=== PATIENT | male | born 1970 | race Caucasian/White ===

== ENCOUNTER 2020-06-03 07:43 | Inpatient (IN) | payer SELFPAY ==
[2020-06-03 08:32] LABS: Absolute Lymphocytes (CBC) 1.2 K/uL (0.7-4.9); Basophils % 0.2 % (0-1.3); Hematocrit 41.4 % (39.6-49.0); Lymphocytes % 14.7 % (15.3-44.8); MPV 7.3 fL (7.6-11.3); RBC Red Blood Cell Count 4.86 M/uL (4.33-5.43)
[2020-06-03 08:38] LABS: Protime INR 1.13
[2020-06-03 08:50] LABS: ALT/SGPT 67 U/L (12-78); AST/SGOT 79 U/L (15-37); Alkaline Phosphatase 92 U/L (45-117); BUN Blood Urea Nitrogen 19 mg/dL (7-18); Bicarbonate 26 mmol/L (21-32); Bilirubin Direct 0.1 mg/dL (0-0.2); Bilirubin Total 0.5 mg/dL (0.2-1.0); Ferritin 1270.3 ng/mL (26-388); Glucose Level 114 mg/dL (74-106); Lipase 140 U/L (73-393); Potassium 3.8 mmol/L (3.5-5.1); Protein, Total 7.4 g/dL (6.4-8.2); Sodium Level 144 mmol/L (136-145); Troponin (Emerg Dept Use Only) < 0.02 ng/mL (0.0-0.045)
[2020-06-03] MEDS ORDERED: METHYLPREDNISOLONE 40 MG INJ ONE (09:02)
--- NOTE | 2020-06-03 09:20 | RAD REPORT ---
EXAM DESCRIPTION: CT - Chest For Pe Angio - 06/03/2020 9:07 am CLINICAL HISTORY: Cough COMPARISON: None. TECHNIQUE: Dynamically enhanced axial 3 mm thick images of the chest were obtained during administra tion of <100> mL Isovue 370 IV contrast. Coronal and oblique reconstruction images were generated and reviewed. Exam utilizes a protocol for optimal evaluation of pulmonary arterial tree. Maximum intensity projections 3D imaging was utilized All CT scans are performed using dose optimization technique as appropriate and may include automated exposure control or mA/KV adjustment according to patient size. FINDINGS: A pulmonary embolus is not seen. A thoracic aortic aneurysm is not noted. A pleural effusion is not seen. A pericardial effusion is not seen. Moderate to marked bilateral ground-glass and alveolar opacities are present within the lungs. Fatty liver IMPRESSION: Negative for a pulmonary embolism. [id number] bilateral ground-glass and alveolar opacities are present within the lungs. This c an be seen with viral pneumonia, pneumonitis and other pneumonias
--- NOTE | 2020-06-03 09:20 | RAD REPORT ---
EXAM DESCRIPTION: Penny Single View06/03/2020 9:02 am CLINICAL HISTORY: Cough COMPARISON: none FINDINGS: Moderate to marked bilateral pulmonary opacities. The heart is normal size IMPRESSION: Moderate to marked bilateral patchy lung opacities represent pneumonia
--- NOTE | 2020-06-03 09:27 | EDPHYS ---
Physician Documentation [facility] Name: Rigoberto Herrera Age: 50 yrs Sex: Male : 1970 Arrival Date: 06/03/2020 Time: 07:46 Bed 2 Private MD: ED Physician Tirso Gunn HPI: 06/03 08:31 This 50 yrs old Male presents to ER via EMS with complaints of Cough, kdr Shortness Of Breath. 08:31 The patient or guardian reports cough, that is intermittent, described as moderate, kdr with productive sputum, that is white, difficulty breathing, flu symptoms, arthralgias, myalgias, no appetite. Onset: The symptoms/episode began/occurred gradually, 5 day(s) ago. Severity of symptoms: At their worst the symptoms were mild, moderate, just prior to arrival, in the emergency department the symptoms are unchanged. Modifying factors: The symptoms are alleviated by nothing, the symptoms are aggravated by talking. Associated signs and symptoms: Pertinent positives: earache, nausea, . The patient has not experienced similar symptoms in the past. The patient has not recently seen a physician. The patient was working in [employer] last week and so when he first became ill, he thought his cough, congestion and generalized aches an pains were just a result of his work but when he lost his sense of taste/smell, he became more concerned. The sensory loss though only lasted a few days but his SOB has worsened since onset. EMS noted room air sat of 75% at home. Here he is noted to desaturate to 87% with talking. Historical: - Allergies: 07:48 Codeine; bp 07:48 Relafen; bp - Home Meds: 07:48 None [Active]; bp - PMHx: 07:48 None; bp - Immunization history:: Adult Immunizations unknown. - Social history:: Smoking status: Patient denies any tobacco usage or history of. ROS: 08:31 Constitutional: Negative for fever, chills, and weight loss, Eyes: Negative for injury, kdr pain, redness, and discharge, Neck: Negative for injury, pain, and swelling, Cardiovascular: Negative for chest pain, palpitations, and edema, Respiratory: Negative for shortness of breath, cough, wheezing, and pleuritic chest pain, Abdomen/GI: Negative for abdominal pain, nausea, vomiting, diarrhea, and constipation, Back: Negative for injury and pain, : Negative for injury, bleeding, discharge, and swelling, MS/Extremity: Negative for injury and deformity, Skin: Negative for injury, rash, and discoloration, Neuro: Negative for headache, weakness, numbness, tingling, and seizure activity. Psych: Negative for depression, anxiety, suicide ideation, homicidal ideation, and hallucinations, Allergy/Immunology: Negative for hives, rash, and allergies, Endocrine: Negative for neck swelling, polydipsia, polyuria, polyphagia, and marked weight changes, Hematologic/Lymphatic: Negative for swollen nodes, abnormal bleeding, and unusual bruising. Exam: 08:31 Constitutional: This is a well developed, well nourished patient who is awake, alert, kdr and in very mild distress. Head/Face: Normocephalic, atraumatic. Eyes: Pupils equal round and reactive to light, extra-ocular motions intact. Lids and lashes normal. Conjunctiva and sclera are non-icteric and not injected. Cornea within normal limits. Periorbital areas with no swelling, redness, or edema. Neck: Trachea midline, no thyromegaly or masses palpated, and no cervical lymphadenopathy. Supple, full range of motion without nuchal rigidity, or vertebral point tenderness. No Meningismus. Chest/axilla: Normal chest wall appearance and motion. Nontender with no deformity. No lesions are appreciated. Back: No spinal tenderness. No costovertebral tenderness. Full range of motion. MS/ Extremity: Pulses equal, no cyanosis. Neurovascular intact. Full, normal range of motion. Psych: Awake, alert, with orientation to person, place and time. Behavior, mood, and affect are within normal limits. 08:31 Cardiovascular: Rate: normal, Rhythm: regular. 08:31 Respiratory: the patient does not display signs of respiratory distress, Respirations: normal. 08:31 Neuro: Orientation: is normal, Mentation: is normal, Memory: appropriate for stated age, Cranial nerves: no acute changes. 08:55 ECG was reviewed by the Attending Physician. kdr Vital Signs: 07:46 Pulse Ox 75% on R/A; bp 07:48 BP 133 / 90; Pulse 94; Resp 33; Temp 97.2; Pulse Ox 93% on 15% Non-rebreather mask; bp Weight 111.13 kg; Height 6 ft. (182.88 cm); 08:56 BP 130 / 85; Pulse 92; Resp 30; Pulse Ox 92% on 15% Non-rebreather mask; bp 09:15 Pulse Ox 87% on Non-rebreather mask; jl7 10:00 Pulse Ox 85% on Non-rebreather mask; jl7 10:09 BP 138 / 88; Pulse 88; Resp 26; Pulse Ox 93% ; jl7 11:00 BP 128 / 82; Pulse 87; Resp 32; Pulse Ox 93% 100% ; bp 11:37 BP 127 / 66; Pulse 86; Resp 31; Pulse Ox 93% 20 lpm ; bp 12:30 BP 118 / 70; Pulse 87; Resp 32; Pulse Ox 92% ; bp 07:48 Body Mass Index 33.23 (111.13 kg, 182.88 cm) bp 10:09 40 lpm, 100%, high flow NC jl7 MDM: 09:27 Patient medically screened. kdr 09:28 Data reviewed: vital signs, nurses notes, lab test result(s), EKG, radiologic studies. kdr Counseling: I had a detailed discussion with the patient and/or guardian regarding: the historical points, exam findings, and any diagnostic results supporting the discharge/admit diagnosis, lab results, radiology results, the need for further work-up and treatment in the hospital. 06/03 07:47 Order name: Blood Culture Adult (2) kdr 06/03 07:47 Order name: BMP; Complete Time: 08:54 kdr 06/03 07:47 Order name: C-Reactive Protein; Complete Time: 08:54 kdr 06/03 07:47 Order name: CBC with Diff; Complete Time: 08:54 kdr 06/03 07:47 Order name: D-Dimer kdr 06/03 07:47 Order name: Ferritin; Complete Time: 08:54 kdr 06/03 07:47 Order name: Flu; Complete Time: 09:24 kdr 06/03 07:47 Order name: Lactate; Complete Time: 08:54 kdr 06/03 07:47 Order name: LFT's; Complete Time: 08:54 kdr 06/03 07:47 Order name: Lipase; Complete Time: 08:54 kdr 06/03 07:47 Order name: Procalcitonin; Complete Time: 09:24 kdr 06/03 07:47 Order name: PT-INR; Complete Time: 08:54 kdr 06/03 07:47 Order name: Ptt, Activated; Complete Time: 08:54 kdr 06/03 07:47 Order name: Strep; Complete Time: 09:24 kdr 06/03 07:47 Order name: Troponin (emerg Dept Use Only); Complete Time: 08:54 kdr 06/03 07:47 Order name: Urine Microscopic Only kdr 06/03 07:47 Order name: CXR XRAY; Complete Time: 09:24 kdr 06/03 07:47 Order name: EKG; Complete Time: 07:48 kdr 06/03 07:47 Order name: Cardiac monitoring; Complete Time: 07:48 kdr 06/03 07:47 Order name: Document PUI#; Complete Time: 07:48 kdr 06/03 07:47 Order name: Droplet/Contact Precautions; Complete Time: 07:48 kdr 06/03 07:48 Order name: Blood Culture EDMS 06/03 07:49 Order name: D-Dimer; Complete Time: 08:54 EDMS 06/03 08:53 Order name: CT Chest For PE Angio; Complete Time: 09:24 kdr 06/03 09:09 Order name: Throat Culture EDMS 06/03 09:45 Order name: SARS-COV-2 RT PCR EDMS 06/03 07:47 Order name: EKG - Nurse/Tech; Complete Time: 08:18 kdr 06/03 07:47 Order name: IV Start; Complete Time: 08:18 kdr 06/03 07:47 Order name: Labs collected and sent; Complete Time: 08:18 kdr 06/03 07:47 Order name: O2 Per Protocol; Complete Time: 08:18 kdr 06/03 07:47 Order name: O2 Sat Monitoring; Complete Time: 07:49 kdr 06/03 07:47 Order name: Urine Dipstick-Ancillary (obtain specimen); Complete Time: 07:48 kdr EC:55 Rate is 93 beats/min. Rhythm is regular, Normal Sinus Rhythm with No ectopy. QRS Ben Bolt kdr is Normal. CA interval is normal. QRS interval is normal. QT interval is normal. Clinical impression: Normal ECG. Administered Medications: 08:40 Drug: SOLU-Medrol 80 mg Route: IVP; Site: right antecubital; bp 09:18 Follow up: Response: No adverse reaction bp 09:59 Drug: Rocephin - (cefTRIAXone) 2 grams Route: IVPB; Infused Over: 30 mins; Site: right bp antecubital; 11:38 Follow up: IV Status: Completed infusion; IV Intake: 50ml bp Disposition: 06/03/20 09:27 Hospitalization ordered by Kervin Larose for Inpatient Admission. Preliminary diagnosis is Pneumonia, unspecified organism. - Bed requested for Intensive Care Unit. - Status is Inpatient Admission. bp - Condition is Fair. - Problem is new. - Symptoms have improved. Signatures: Dispatcher [employer] EDMS Yuliet De Leon, RN RN dw Tirso Gunn MD MD kdr Gilson Boo RN RN bp Corrections: (The following items were deleted from the chart) 07:49 07:47 Notify Health Dept [phone]/ ordered. kdr sv 08:18 07:47 Clark ordered. kdr bp 08:36 08:10 CORONAVIRUS+MR.LAB.DAKOTAZ ordered. [facility] EDDC 12:49 09:27 Hospitalization Ordered by Kervin Larose DO for Inpatient Admission. Preliminary dw diagnosis is Pneumonia, unspecified organism. Bed requested for Telemetry/MedSurg (Inpatient). Status is Inpatient Admission. Condition is Fair. Problem is new. Symptoms have improved. kdr 14:11 12:49 06/03/2020 09:27 Hospitalization Ordered by Kervin Larose DO for Inpatient bp Admission. Preliminary diagnosis is Pneumonia, unspecified organism. Bed requested for Intensive Care Unit. Status is Inpatient Admission. Condition is Fair. Problem is new. Symptoms have improved. dw
--- NOTE | 2020-06-03 09:27 | ER ---
Nurse's Notes [facility] Name: Rigoberto Herrera Age: 50 yrs Sex: Male : 1970 Arrival Date: 06/03/2020 Time: 07:46 Bed 2 Private MD: Diagnosis: Pneumonia, unspecified organism Presentation: 06/03 07:46 Chief complaint: EMS states: COUGH, SHORTNESS OF BREATH, MALAISE x5 DAYS. Coronavirus bp screen: cough unrelated to allergies, difficulty breathing, fatigue, muscle pain, shortness of breath, Client presents with at least one sign or symptom that may indicate coronavirus-19. Standard/surgical mask placed on the client. Provider contacted for isolation considerations. Ebola Screen: No symptoms or risks identified at this time. Initial Sepsis Screen: Does the patient meet any 2 criteria? RR > 20 per min. No. Patient's initial sepsis screen is negative. Does the patient have a suspected source of infection? No. Patient's initial sepsis screen is negative. Risk Assessment: Do you want to hurt yourself or someone else? Patient reports no desire to harm self or others. Onset of symptoms is unknown. 07:46 Method Of Arrival: EMS: [facility] bp 07:46 Acuity: SUAL 2 bp Triage Assessment: 07:48 General: Appears distressed, ill, obese, Behavior is cooperative, appropriate for age, bp anxious. Pain: Denies pain. EENT: Reports nasal congestion. Neuro: Level of Consciousness is awake, alert, obeys commands, Oriented to person, place, time, situation, Appropriate for age. Cardiovascular: Rhythm is sinus rhythm. Respiratory: Breath sounds are coarse bilaterally. Breath sounds are diminished bilaterally. GI: No signs and/or symptoms were reported involving the gastrointestinal system. : No signs and/or symptoms were reported regarding the genitourinary system. Derm: No deficits noted. Musculoskeletal: No deficits noted. Historical: - Allergies: 07:48 Codeine; bp 07:48 Relafen; bp - Home Meds: 07:48 None [Active]; bp - PMHx: 07:48 None; bp - Immunization history:: Adult Immunizations unknown. - Social history:: Smoking status: Patient denies any tobacco usage or history of. Screenin:50 Abuse screen: Denies threats or abuse. Denies injuries from another. Nutritional bp screening: No deficits noted. Tuberculosis screening: No symptoms or risk factors identified. Fall Risk None identified. Assessment: 07:50 General: SEE TRIAGE NOTE. bp 09:20 Reassessment: Patient appears in no apparent distress at this time. No changes from jl7 previously documented assessment. Patient and/or family updated on plan of care and expected duration. Pain level reassessed. pt A\T\0 x 4. respirations unchanged from previous assessment. 10:09 Reassessment: pt placed on high-flow O2, 40L at 100%. jl7 10:40 Reassessment: Dr. Larose at bedside. jl7 11:37 Reassessment: No changes from previously documented assessment. Patient and/or family bp updated on plan of care and expected duration. Pain level reassessed. Patient is alert, oriented x 3, equal unlabored respirations, skin warm/dry/pink. ADMIT IN PROCESS. PT REMAINS ON HIFLOW NC 40L AT 100%. 12:30 Reassessment: Patient appears in no apparent distress at this time. No changes from bp previously documented assessment. Patient and/or family updated on plan of care and expected duration. Pain level reassessed. Patient is alert, oriented x 3, equal unlabored respirations, skin warm/dry/pink. ADMIT IN PROCESS. 12:57 Reassessment: Attempted to call report, nurse unavailable. sv 13:44 Reassessment: ADMIT COMPLETE, REPORT TO FLAKO RN FOR ICU 3. bp Vital Signs: 07:46 Pulse Ox 75% on R/A; bp 07:48 BP 133 / 90; Pulse 94; Resp 33; Temp 97.2; Pulse Ox 93% on 15% Non-rebreather mask; bp Weight 111.13 kg; Height 6 ft. (182.88 cm); 08:56 BP 130 / 85; Pulse 92; Resp 30; Pulse Ox 92% on 15% Non-rebreather mask; bp 09:15 Pulse Ox 87% on Non-rebreather mask; jl7 10:00 Pulse Ox 85% on Non-rebreather mask; jl7 10:09 BP 138 / 88; Pulse 88; Resp 26; Pulse Ox 93% ; jl7 11:00 BP 128 / 82; Pulse 87; Resp 32; Pulse Ox 93% 100% ; bp 11:37 BP 127 / 66; Pulse 86; Resp 31; Pulse Ox 93% 20 lpm ; bp 12:30 BP 118 / 70; Pulse 87; Resp 32; Pulse Ox 92% ; bp 07:48 Body Mass Index 33.23 (111.13 kg, 182.88 cm) bp 10:09 40 lpm, 100%, high flow NC jl7 ED Course: 07:46 Patient arrived in ED. bp 07:46 Tirso Gunn MD is Attending Physician. kdr 07:46 Arm band placed on. sv 07:46 Patient has correct armband on for positive identification. Bed in low position. Call sv light in reach. Side rails up X2. Pulse ox on. NIBP on. 07:47 Triage completed. bp 07:48 Mathieu Huntley, KAYLI is Primary Nurse. jl7 08:15 Inserted saline lock: 20 gauge in right antecubital area, using aseptic technique. bp Blood collected. 08:20 Initial lab(s) drawn, by ED staff, sent to lab. EKG done, by ED staff, reviewed by jl7 Tirso Gunn MD COVID swab sent to lab. Flu and/or RSV swab sent to lab. Strep swab sent to lab. 08:59 D-Dimer Sent. sv 09:02 CXR XRAY In Process Unspecified. EDMS 09:06 CT Chest For PE Angio In Process Unspecified. EDMS 09:26 Kervin Larose DO is Hospitalizing Provider. kdr 12:58 No provider procedures requiring assistance completed. Patient admitted, IV remains in sv place. intact. Administered Medications: 08:40 Drug: SOLU-Medrol 80 mg Route: IVP; Site: right antecubital; bp 09:18 Follow up: Response: No adverse reaction bp 09:59 Drug: Rocephin - (cefTRIAXone) 2 grams Route: IVPB; Infused Over: 30 mins; Site: right bp antecubital; 11:38 Follow up: IV Status: Completed infusion; IV Intake: 50ml bp Intake: 11:38 IV: 50ml; Total: 50ml. bp Outcome: 09:27 Decision to Hospitalize by Provider. kdr 13:44 Admitted to ICU accompanied by nurse, via wheelchair, room 3, with oxygen, with chart, bp Report called to FLAKO MILAN 13:44 Condition: stable 13:44 Instructed on the need for admit. 14:11 Patient left the ED. bp Signatures: Dispatcher [employer] Daniella Hill, RN RN sv Tirso Gunn MD MD kdr Leal, Jahala, RN RN jl7 Gilson Boo RN RN bp
[2020-06-03] MEDS ORDERED: CEFTRIAXONE/SWI 2gm 2 GM/20 ML SYR IV ONE (10:00)
[2020-06-03] MEDS ORDERED: NA CHLORIDE 0.9% 100 ML ONE (10:09)
--- NOTE | 2020-06-03 11:34 | P.HP ---
Certification for Inpatient Patient admitted to: Inpatient With expected LOS: >2 Midnights Patient will require the following post-hospital care: None Practitioner: I am a practitioner with admitting privileges, knowledge of patient current condition, hospital course, and medical plan of care. Services: Services provided to patient in accordance with Admission requirements found in Title 42 Section 412.3 of the Code of Federal Regulations Patient History Date of Service: 06/03/20 Primary Care Provider: None Reason for admission: Shortness of breath History of Present Illness: 50-year-old male without medical problems came to the emergency room with worsening shortness of breath, cough. Patient has been monitoring his oxygen saturations at home due to shortness of breath. He was also having some cough and congestion over the past week. His mother has oxygen. He noted that his oxygen level was around 90% on Tuesday. He start to use his mother's oxygen due to his room-air saturations. His oxygen requirement was up to 4 L today. His symptoms have worsened and not improved. Increased fatigue. Poor appetite noted. He came to the ER for further evaluation. In the ER patient was evaluated. CT scan revealed no pulmonary embolism. Moderate to marked bilateral grass ground opacities noted in the lung. His CRP was elevated at 81. Ferritin also elevated at 1270. D-dimer 879. Lactic acid normal. Pro calcitonin 0.08. White count 7.9, hemoglobin 14. CBC unremarkable. Patient was given IV Solu-Medrol in the emergency room. Patient also given Rocephin. Patient admitted for further evaluation and treatment. When I saw the patient ER, he appeared stable. Patient on high-flow oxygen. Allergies codeine Allergy (Verified 06/03/20 09:37) UNK nabumetone [From Relafen] Allergy (Verified 06/03/20 09:36) UNK Home medications list reviewed: Yes - Past Medical/Surgical History Diabetic: No Past Medical History: Patient denies medical history Past Surgical History: Patient denies surgical history Psychosocial/ Personal History: Patient is . 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 - Family History Family History: Reviewed- Non-Contributory - Social History Smoking Status: Never smoker Alcohol use: Yes CD- Drugs: No Caffeine use: Yes Place of Residence: Home Review of Systems General: Weakness, Malaise Eyes: Unremarkable ENT: Nose Congestion, As per HPI Respiratory: Cough, Shortness of Breath, SOB with Excertion, As per HPI Cardiovascular: Unremarkable Gastrointestinal: Unremarkable Genitourinary: Unremarkable Musculoskeletal: As per HPI (Pain to the left ribcage region) Integumentary: Unremarkable Neurological: Unremarkable Lymphatics: Unremarkable Physical Examination - Physical Exam General: Alert, In no apparent distress, Oriented x3, Cooperative HEENT: Atraumatic, Mucous membr. moist/pink Neck: Supple Respiratory: Other (Patient on high-flow oxygen pre) Cardiovascular: Normal pulses, Regular rate/rhythm Gastrointestinal: Normal bowel sounds, No tenderness, No masses, No rebound, No guarding Musculoskeletal: No tenderness, No warmth, Other (Wall tenderness to the left ribcage region laterally) Integumentary: No erythema, No warmth, No cyanosis Neurological: Normal speech, Normal strength at 5/5 x4 extr, Normal tone, Normal affect - Studies Laboratory Data (last 24 hrs) 06/03/20 08:15: PT 13.3 H, INR 1.13, APTT 29.3 06/03/20 08:15: WBC 7.9, Hgb 14.3, Hct 41.4, Plt Count 307 06/03/20 08:15: Sodium 144, Potassium 3.8, BUN 19 H, Creatinine 0.98, Glucose 114 H, Total Bilirubin 0.5, AST 79 H, ALT 67, Alkaline Phosphatase 92, Lipase 140 Microbiology Data (last 24 hrs): 06/03/20 08:06 Nasopharnyx Influenza Type A Antigen Screen - Final 06/03/20 08:06 Nasopharnyx Influenza Type B Antigen Screen - Final 06/03/20 08:06 Throat Group A Streptococcus Rapid Screen - Final Assessment and Plan - Plan Impression: Shortness of breath secondary to acute respiratory failure with hypoxia related to Bilateral COVID 19 pneumonia Plan: Patient will be admitted for further evaluation and treatment. Patient is positive for COVID 19. Treatment options address in detail. Will continue with IV steroid and vitamin supplementation. Patient currently on high-flow oxygen. Will try to wean off over the next 48 hr. Patient will likely require home oxygen at discharge. Will provide medication for cough. Will also start Eliquis due to his risk for PE and DVT. Pulmonology will be consulted to further evaluate. Will continue monitor closely. If no significant change her improvement will need to consider Remdesivir IV or plasma tomorrow. Will continue to reassess. Anticipate improvement over the next 72 hr. Discharge Plan: Home Plan to discharge in: Greater than 2 days - Advance Directives Does patient have a Living Will: No Does patient have a Durable POA for Healthcare: No - Code Status/Comfort Care Code Status Assessed: Yes (Patient is full code) Time Spent Managing Pts Care (In Minutes): 55
[2020-06-03] MEDS ORDERED: ACETAMINOPHEN 500 MG TAB PO PRN (13:04)
[2020-06-03] MEDS ORDERED: ONDANSETRON 4 MG/2 ML VIAL IV PRN (13:04)
[2020-06-03] MEDS ORDERED: POTASSIUM CL SA 10 MEQ TAB PO ONE (14:00)
[2020-06-03] MEDS: ASCORBIC ACID 500 MG TABLET PO SCH ×2 (14:04→20:56)
[2020-06-03] MEDS: levoFLOXacin 500 MG TAB PO SCH (14:04)
[2020-06-03] MEDS: METHYLPREDNISOLONE 125 MG INJ IV SCH (16:11)
[2020-06-03] MEDS: BENZONATATE 100 MG CAP PO PRN (16:19)
[2020-06-03 16:24] LABS: Urine Appearance CLEAR; Urine Bilirubin NEGATIVE (NEG); Urine Blood NEGATIVE (NEG); Urine Color YELLOW; Urine Glucose NEGATIVE (NEG); Urine Protein 1+ (NEG); Urine Specific Gravity >=1.030 (1.005-1.030); Urine Urobilinogen 0.2 mg/dL (0.2-1.0); Urine pH 5.5 (5.0-7.0)
[2020-06-03 16:26] LABS: Urine Microscopic Reflex ORDER UMIC
[2020-06-03 16:44] LABS: Urine Bacteria <20 /HPF (NONE SEEN); Urine RBC <5 /HPF (NONE SEEN)
[2020-06-03] MEDS: APIXABAN 5 MG TABLET PO SCH (20:56)
[2020-06-04] MEDS: METHYLPREDNISOLONE 125 MG INJ IV SCH ×3 (01:45→18:27)
[2020-06-04 05:33] LABS: Absolute Lymphocytes (CBC) 0.7 K/uL (0.7-4.9); Basophils % 0.2 % (0-1.3); Hematocrit 39.1 % (39.6-49.0); Lymphocytes % 8.4 % (15.3-44.8); MPV 7.2 fL (7.6-11.3); RBC Red Blood Cell Count 4.61 M/uL (4.33-5.43)
[2020-06-04 05:41] LABS: Magnesium 2.5 mg/dL (1.8-2.4)
[2020-06-04 06:51] LABS: C-Reactive Protein 60.9 mg/L (<3.00); Ferritin 1292.6 ng/mL (26-388)
--- NOTE | 2020-06-04 07:47 | P.PN ---
Subjective Date of Service: 06/04/20 Primary Care Provider: None Chief Complaint: Shortness of breath Subjective: Other (Patient remains on high-flow. Patient feels better.) Physical Examination - Vital Signs Temperature: 97.0 F Blood Pressure: 110/69 Pulse: 73 Respirations: 25 Pulse Ox (%): 93 - Physical Exam General: Alert, In no apparent distress, Oriented x3, Cooperative HEENT: Atraumatic Neck: Supple Respiratory: Other (Patient on high-flow. No significant distress noted) Cardiovascular: Normal pulses Neurological: Normal speech, Normal strength at 5/5 x4 extr, Normal tone, Normal affect - Studies Laboratory Data (last 24 hrs) 06/03/20 08:15: PT 13.3 H, INR 1.13, APTT 29.3 06/03/20 08:15: WBC 7.9, Hgb 14.3, Hct 41.4, Plt Count 307 06/03/20 08:15: Sodium 144, Potassium 3.8, BUN 19 H, Creatinine 0.98, Glucose 114 H, Total Bilirubin 0.5, AST 79 H, ALT 67, Alkaline Phosphatase 92, Lipase 140 Microbiology Data (last 24 hrs): 06/03/20 08:06 Nasopharnyx Influenza Type A Antigen Screen - Final 06/03/20 08:06 Nasopharnyx Influenza Type B Antigen Screen - Final 06/03/20 08:06 Throat Group A Streptococcus Rapid Screen - Final Medications List Reviewed: Yes Assessment & Plan Discharge Plan: Home Plan to discharge in: 24 Hours Physician Review Additional Text: Impression: Shortness of breath secondary to acute respiratory failure with hypoxia related to Bilateral COVID 19 pneumonia Plan: Patient feels slightly better. Continue with high-flow oxygen. Wean off to nasal cannula. Continue IV steroid and Levaquin. Continue vitamin supplementation and Eliquis. Will discuss further with pulmonology. Await recommendations. I did discuss the possibility of Remdesivir IV but the patient wants to see how he does with current medications. Encourage incentive spirometer. Patient ambulate today. Anticipate improvement over the next 24 to 48 hr. Patient will likely require home oxygen at discharge. Will discuss with social media marketing manager. Time Spent Managing Pts Care (In Minutes): 55
[2020-06-04] MEDS ORDERED: INFLUENZA VACCINE (for 3y+) 0.5 ML DOSE IMVAC ONE (08:00)
[2020-06-04 08:50] LABS: Blood Morphology Comment NOT SEEN (NOT SEEN); Platelet Estimate ADEQ
[2020-06-04] MEDS: FOLIC ACID 1 MG TABLET PO SCH (08:53)
[2020-06-04] MEDS: VITAMIN D 1000 UNIT TAB PO SCH (08:53)
[2020-06-04] MEDS: ASCORBIC ACID 500 MG TABLET PO SCH ×3 (08:53→21:52)
[2020-06-04] MEDS: THIAMINE HCL 100 MG TABLET PO SCH (08:54)
[2020-06-04] MEDS: levoFLOXacin 500 MG TAB PO SCH (08:54)
[2020-06-04] MEDS: APIXABAN 5 MG TABLET PO SCH ×2 (08:54→21:52)
[2020-06-04] MEDS ORDERED: Remdesivir 200 MG in NA CHLORIDE 0.9% 250 ML IV ONE (10:00)
--- NOTE | 2020-06-04 12:34 | P.CNS ---
Date of Consult: 06/04/20 (Telephone Consul) Reason for Consult: Respiratory failure from burch virus Primary Care Provider: None Chief Complaint: Shortness of breath History of Present Illness: Patient is 47 years of age admitted from the emergency room with worsening shortness of breath positive for burch virus hypoxic came here to the emergency room right now is stable oxygenation appears to be satisfactory CT scan consistent with burch virus infection Allergies codeine Allergy (Verified 06/03/20 09:37) UNK nabumetone [From Relafen] Allergy (Verified 06/03/20 09:36) UNK Home Medications: NK [No Home Meds] 06/03/20 - Past Medical/Surgical History Diabetic: No -: Stroke 2006 Psychosocial/ Personal History: Patient is . 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 - Family History Father Medical History: Heart disease Mother Medical History: Diabetes - Social History Alcohol use: No CD- Drugs: No Caffeine use: Yes Place of Residence: Home Physical Examination Temp Pulse Resp BP Pulse Ox 98.2 F 91 H 29 H 117/66 93 06/04/20 08:00 06/04/20 11:00 06/04/20 11:00 06/04/20 11:00 06/04/20 11:00 - Problems (1) Pneumonia due to 2019 novel coronavirus Current Visit: Yes Status: Acute Plan: Patient is 50 years of age admitted with respiratory failure from burch virus labs CT scan all reviewed CRP ferritin level elevated continue with high-dose steroids agree with full anticoagulation Dc antibiotics no evidence of sepsis I have ordered Remdemir continued titrate his O2
[2020-06-04] MEDS: BENZONATATE 100 MG CAP PO PRN (21:58)
[2020-06-05] MEDS: METHYLPREDNISOLONE 125 MG INJ IV SCH ×3 (01:31→16:56)
[2020-06-05 05:17] LABS: Absolute Lymphocytes (CBC) 0.7 K/uL (0.7-4.9); Basophils % 0.2 % (0-1.3); Hematocrit 39.2 % (39.6-49.0); Lymphocytes % 7.4 % (15.3-44.8); MPV 7.1 fL (7.6-11.3); RBC Red Blood Cell Count 4.62 M/uL (4.33-5.43)
[2020-06-05 05:32] LABS: Albumin 2.7 g/dL (3.4-5.0); Bilirubin Direct 0.1 mg/dL (0-0.2); Bilirubin Total 0.5 mg/dL (0.2-1.0); C-Reactive Protein 20.8 mg/L (<3.00); Ferritin 1333.4 ng/mL (26-388); Magnesium 2.5 mg/dL (1.8-2.4); Potassium 3.8 mmol/L (3.5-5.1); Protein, Total 6.7 g/dL (6.4-8.2)
[2020-06-05] MEDS ORDERED: POTASSIUM 25 MEQ EFFERV TAB PO ONE (07:41)
[2020-06-05] MEDS: ASCORBIC ACID 500 MG TABLET PO SCH ×3 (08:22→21:35)
[2020-06-05] MEDS: VITAMIN D 1000 UNIT TAB PO SCH (08:22)
[2020-06-05] MEDS: APIXABAN 5 MG TABLET PO SCH ×2 (08:22→21:35)
[2020-06-05] MEDS: FOLIC ACID 1 MG TABLET PO SCH (08:22)
[2020-06-05] MEDS: THIAMINE HCL 100 MG TABLET PO SCH (08:22)
[2020-06-05] MEDS: Remdesivir 100 MG in NA CHLORIDE 0.9% 250 ML IV SCH (09:01)
--- NOTE | 2020-06-05 12:10 | P.PN ---
Subjective Date of Service: 06/05/20 (Hospital is) Primary Care Provider: None Chief Complaint: Respiratory failure Subjective: Improving (Patient is feeling better still requiring high concentrations of oxygen) Review of Systems General: Weakness Respiratory: Shortness of Breath Physical Examination - Vital Signs Temperature: 97.6 F Blood Pressure: 117/71 Pulse: 64 Respirations: 21 Pulse Ox (%): 92 - Physical Exam General: Alert, Oriented x3 Respiratory: Clear to auscultation bilaterally, Diminished Cardiovascular: No edema, Regular rate/rhythm - Studies Microbiology Data (last 24 hrs): 06/03/20 08:06 Throat Culture & Sensitivity - Final NORMAL UPPER RESPIRATORY MOISÉS GROWN. Medications List Reviewed: Yes Assessment & Plan - Problems (Diagnosis) (1) Pneumonia due to 2019 novel coronavirus Current Visit: Yes Status: Acute Plan: Patient has respiratory failure home burch virus increase the dose of IV Solu- Medrol continued titrate O2 down
[2020-06-05 14:08] VITALS: BMI 32.3
[2020-06-06] MEDS: METHYLPREDNISOLONE 125 MG INJ IV SCH ×3 (01:34→17:21)
[2020-06-06 04:55] LABS: Absolute Lymphocytes (CBC) 0.5 K/uL (0.7-4.9); Basophils % 0.2 % (0-1.3); Hematocrit 38.4 % (39.6-49.0); Lymphocytes % 4.9 % (15.3-44.8); MPV 7.6 fL (7.6-11.3); RBC Red Blood Cell Count 4.52 M/uL (4.33-5.43)
[2020-06-06 05:22] LABS: Albumin 2.5 g/dL (3.4-5.0); Bilirubin Direct 0.1 mg/dL (0-0.2); Bilirubin Total 0.5 mg/dL (0.2-1.0); C-Reactive Protein 8.25 mg/L (<3.00); Ferritin 1144.9 ng/mL (26-388); Magnesium 2.4 mg/dL (1.8-2.4); Potassium 3.7 mmol/L (3.5-5.1); Protein, Total 6.7 g/dL (6.4-8.2)
[2020-06-06] MEDS: FOLIC ACID 1 MG TABLET PO SCH (08:44)
[2020-06-06] MEDS: ASCORBIC ACID 500 MG TABLET PO SCH ×3 (08:44→20:43)
[2020-06-06] MEDS: APIXABAN 5 MG TABLET PO SCH ×2 (08:44→20:43)
[2020-06-06] MEDS: Remdesivir 100 MG in NA CHLORIDE 0.9% 250 ML IV SCH (08:45)
[2020-06-06] MEDS: THIAMINE HCL 100 MG TABLET PO SCH (08:45)
[2020-06-06] MEDS: VITAMIN D 1000 UNIT TAB PO SCH (08:45)
[2020-06-06] MEDS ORDERED: POTASSIUM CL SA 10 MEQ TAB PO ONE (09:00)
[2020-06-07] MEDS: METHYLPREDNISOLONE 125 MG INJ IV SCH ×3 (00:18→17:14)
[2020-06-07 05:49] LABS: Albumin 2.5 g/dL (3.4-5.0); Bilirubin Direct 0.2 mg/dL (0-0.2); Bilirubin Total 0.6 mg/dL (0.2-1.0); C-Reactive Protein 4.94 mg/L (<3.00); Ferritin 1055.4 ng/mL (26-388); Protein, Total 6.1 g/dL (6.4-8.2)
[2020-06-07] MEDS: THIAMINE HCL 100 MG TABLET PO SCH (09:00)
[2020-06-07] MEDS: APIXABAN 5 MG TABLET PO SCH ×2 (09:09→20:28)
[2020-06-07] MEDS: ASCORBIC ACID 500 MG TABLET PO SCH ×3 (09:09→20:28)
[2020-06-07] MEDS: VITAMIN D 1000 UNIT TAB PO SCH (09:09)
[2020-06-07] MEDS: Remdesivir 100 MG in NA CHLORIDE 0.9% 250 ML IV SCH (09:09)
[2020-06-07] MEDS: FOLIC ACID 1 MG TABLET PO SCH (09:09)
[2020-06-07] MEDS ORDERED: POTASSIUM CL SA 10 MEQ TAB PO ONE (09:49)
--- NOTE | 2020-06-07 10:14 | P.PN ---
Subjective Date of Service: 06/07/20 Primary Care Provider: None Chief Complaint: Respiratory failure Patient feeling better still requiring high concentrations of oxygen Review of Systems General: Weakness Respiratory: Shortness of Breath Physical Examination - Vital Signs Temperature: 97.8 F Blood Pressure: 112/67 Pulse: 71 Respirations: 18 Pulse Ox (%): 88 - Physical Exam General: Alert, Oriented x3, Moderate distress Respiratory: Clear to auscultation bilaterally, Crackles/rales Cardiovascular: No edema, Regular rate/rhythm - Studies Medications List Reviewed: Yes Assessment & Plan - Problems (Diagnosis) (1) Pneumonia due to 2019 novel coronavirus Current Visit: Yes Status: Acute Plan: Respiratory failure from coronal virus patient is subjectively feeling better still requiring high concentrations of oxygen no change in treatment/ PT SP REmedesmir spironolactone to maintain his slight negative fluid balance
[2020-06-07] MEDS: SPIRONOLACTONE 25 MG TABLET PO SCH (13:00)
[2020-06-07] MEDS: MELATONIN 5 MG TABLET PO SCH (20:28)
[2020-06-08] MEDS: METHYLPREDNISOLONE 125 MG INJ IV SCH ×3 (00:47→16:14)
[2020-06-08 06:11] LABS: ALT/SGPT 71 U/L (12-78); AST/SGOT 33 U/L (15-37); Albumin 2.4 g/dL (3.4-5.0); Alkaline Phosphatase 72 U/L (45-117); Bilirubin Direct 0.2 mg/dL (0-0.2); Bilirubin Total 0.7 mg/dL (0.2-1.0); Ferritin 981.4 ng/mL (26-388)
[2020-06-08 06:25] LABS: C-Reactive Protein < 2.90 mg/L (<3.00)
[2020-06-08] MEDS: Remdesivir 100 MG in NA CHLORIDE 0.9% 250 ML IV SCH (08:00)
[2020-06-08] MEDS: VITAMIN D 1000 UNIT TAB PO SCH (08:08)
[2020-06-08] MEDS: ASCORBIC ACID 500 MG TABLET PO SCH ×3 (08:09→20:15)
[2020-06-08] MEDS: THIAMINE HCL 100 MG TABLET PO SCH (08:09)
[2020-06-08] MEDS: SPIRONOLACTONE 25 MG TABLET PO SCH (08:10)
[2020-06-08] MEDS: APIXABAN 5 MG TABLET PO SCH ×2 (08:10→20:15)
[2020-06-08] MEDS: FOLIC ACID 1 MG TABLET PO SCH (08:10)
--- NOTE | 2020-06-08 09:48 | P.PN ---
Subjective Date of Service: 06/08/20 Primary Care Provider: None Chief Complaint: Respiratory failure Patient is subjectively feeling better although requiring high concentrations of oxygen Review of Systems General: Weakness Respiratory: Shortness of Breath Physical Examination - Vital Signs Temperature: 98.5 F Blood Pressure: 117/64 Pulse: 75 Respirations: 24 Pulse Ox (%): 90 - Physical Exam General: Alert, Oriented x3 - Studies Microbiology Data (last 24 hrs): 06/03/20 08:15 Blood - Blood Aerobic Blood Culture - Final No growth in 5 days. 06/03/20 08:15 Blood - Blood Anaerobic Blood Culture - Final No growth in 5 days. 06/03/20 08:00 Blood - Blood Aerobic Blood Culture - Final No growth in 5 days. 06/03/20 08:00 Blood - Blood Anaerobic Blood Culture - Final No growth in 5 days. Medications List Reviewed: Yes Assessment & Plan - Problems (Diagnosis) (1) Pneumonia due to 2019 novel coronavirus Current Visit: Yes Status: Acute Plan: Respiratory failure continue with present treatment continues to feels better patient's ferritin level is declining CRP is not less than 10 continue with present a steroid
[2020-06-08] MEDS: MELATONIN 5 MG TABLET PO SCH (20:16)
[2020-06-08] MEDS ORDERED: GLUCAGON 1 MG/VIAL IM PRN (21:54)
[2020-06-08] MEDS ORDERED: D50W 25 GM/50 ML SYRINGE IV PRN (21:54)
[2020-06-08] MEDS: INSULIN -REGULAR HUMAN 50 UNIT/0.5 ML ML SQ SCH (22:36)
[2020-06-09] MEDS: METHYLPREDNISOLONE 125 MG INJ IV SCH ×3 (00:49→17:52)
[2020-06-09 07:15] LABS: BUN Blood Urea Nitrogen 26 mg/dL (7-18); Bicarbonate 27 mmol/L (21-32); Glucose Level 221 mg/dL (74-106); Potassium 4.3 mmol/L (3.5-5.1); Sodium Level 139 mmol/L (136-145)
[2020-06-09 07:24] LABS: Ferritin 943.8 ng/mL (26-388)
[2020-06-09 07:25] LABS: C-Reactive Protein < 2.90 mg/L (<3.00)
[2020-06-09] MEDS: INSULIN -REGULAR HUMAN 50 UNIT/0.5 ML ML SQ SCH ×4 (08:10→22:26)
[2020-06-09] MEDS: APIXABAN 5 MG TABLET PO SCH ×2 (08:10→22:26)
[2020-06-09] MEDS: FOLIC ACID 1 MG TABLET PO SCH (08:10)
[2020-06-09] MEDS: ASCORBIC ACID 500 MG TABLET PO SCH ×3 (08:10→22:26)
[2020-06-09] MEDS: VITAMIN D 1000 UNIT TAB PO SCH (08:10)
[2020-06-09] MEDS: THIAMINE HCL 100 MG TABLET PO SCH (08:10)
[2020-06-09] MEDS: SPIRONOLACTONE 25 MG TABLET PO SCH (08:10)
--- NOTE | 2020-06-09 12:16 | P.PN ---
Subjective Date of Service: 06/09/20 Primary Care Provider: None Chief Complaint: Respiratory failure Improving feeling better still requiring high concentrations of oxygen Review of Systems General: Weakness Respiratory: Shortness of Breath Physical Examination - Vital Signs Temperature: 97.0 F Blood Pressure: 101/60 Pulse: 77 Respirations: 16 Pulse Ox (%): 89 - Studies Microbiology Data (last 24 hrs): 06/03/20 08:15 Blood - Blood Aerobic Blood Culture - Final No growth in 5 days. 06/03/20 08:15 Blood - Blood Anaerobic Blood Culture - Final No growth in 5 days. 06/03/20 08:00 Blood - Blood Aerobic Blood Culture - Final No growth in 5 days. 06/03/20 08:00 Blood - Blood Anaerobic Blood Culture - Final No growth in 5 days. Medications List Reviewed: Yes Assessment & Plan - Problems (Diagnosis) (1) Pneumonia due to 2019 novel coronavirus Current Visit: Yes Status: Acute Plan: Respiratory failure from burch virus is subjectively feeling better ferritin level is declined slightly continue with present treatment
[2020-06-09] MEDS: MELATONIN 5 MG TABLET PO SCH (22:26)
[2020-06-10] MEDS: METHYLPREDNISOLONE 125 MG INJ IV SCH ×3 (00:18→16:45)
[2020-06-10 06:30] LABS: Ferritin 933.1 ng/mL (26-388)
[2020-06-10 06:33] LABS: C-Reactive Protein < 2.90 mg/L (<3.00)
--- NOTE | 2020-06-10 08:09 | RAD REPORT ---
EXAM DESCRIPTION: RAD - Chest Single View - 06/10/2020 7:10 am CLINICAL HISTORY: Pneumonia COMPARISON: CT chest June 03, portable chest June 03 TECHNIQUE: AP portable chest image was obtained 06/10/2020 7:10 am . FINDINGS: Lung volumes are even further reduced compared to the portable chest film. Bilateral inter stitial and airspace opacification present worse on the left. When adjusting for the lower lung volum es, findings are not substantially different. Patient could have slight worsening at the left base. L ateral left base is the area most limited on a shallow inspiration portable study. Cardiac silhouette is enlarged. Pulmonary vasculature is prominent. No pneumothorax present. No larg e pleural effusions seen. No acute bony abnormality seen. No acute aortic findings suspected. IMPRESSION: Limited shallow inspiration film showing bilateral parenchymal opacification worse in th e left base. Overall pattern is not substantially different. Patient could have some worsening in the lateral left base.
[2020-06-10] MEDS: ASCORBIC ACID 500 MG TABLET PO SCH ×3 (09:01→20:40)
[2020-06-10] MEDS: SPIRONOLACTONE 25 MG TABLET PO SCH (09:01)
[2020-06-10] MEDS: APIXABAN 5 MG TABLET PO SCH ×2 (09:02→20:40)
[2020-06-10] MEDS: FOLIC ACID 1 MG TABLET PO SCH (09:02)
[2020-06-10] MEDS: VITAMIN D 1000 UNIT TAB PO SCH (09:02)
[2020-06-10] MEDS: INSULIN -REGULAR HUMAN 50 UNIT/0.5 ML ML SQ SCH ×4 (09:03→21:22)
[2020-06-10] MEDS: THIAMINE HCL 100 MG TABLET PO SCH (09:06)
--- NOTE | 2020-06-10 12:12 | P.PN ---
Subjective Date of Service: 06/10/20 Primary Care Provider: None Chief Complaint: Respiratory failure Patient is improving he is able to tolerate nasal cannula oxygen 6 L is sat around 90% Review of Systems General: Weakness Respiratory: Shortness of Breath Physical Examination - Vital Signs Temperature: 97.6 F Blood Pressure: 116/56 Pulse: 79 Respirations: 22 Pulse Ox (%): 86 - Studies Medications List Reviewed: Yes Assessment & Plan - Problems (Diagnosis) (1) Pneumonia due to 2019 novel coronavirus Current Visit: Yes Status: Acute Plan: Respiratory failure from burch virus he is improving tolerating nasal cannula oxygen decrease dose of Solu-Medrol possible discharge tomorrow if he can maintain sat above 88% on 4 L discharged on prednisone 20 b.i.d. and full anticoagulation blood pressure controlled
[2020-06-10] MEDS: MELATONIN 5 MG TABLET PO SCH (20:40)
[2020-06-11] MEDS: METHYLPREDNISOLONE 125 MG INJ IV SCH ×3 (00:21→16:51)
[2020-06-11] MEDS: SPIRONOLACTONE 25 MG TABLET PO SCH (08:24)
[2020-06-11] MEDS: VITAMIN D 1000 UNIT TAB PO SCH (08:24)
[2020-06-11] MEDS: FOLIC ACID 1 MG TABLET PO SCH (08:25)
[2020-06-11] MEDS: ASCORBIC ACID 500 MG TABLET PO SCH ×3 (08:25→20:07)
[2020-06-11] MEDS: APIXABAN 5 MG TABLET PO SCH ×2 (08:36→20:07)
[2020-06-11] MEDS: INSULIN -REGULAR HUMAN 50 UNIT/0.5 ML ML SQ SCH ×4 (08:38→22:12)
--- NOTE | 2020-06-11 08:42 | P.PN ---
Subjective Date of Service: 06/09/20 Patient doing well clinically but he is still very hypoxic. He is on 8 L of oxygen and satting 86%. Whenever he talks starts talking he goes down to 82%. He states he feels really good and feels like he is almost ready to go home. Unfortunately, his oxygenation does not really reflect that he is at a point were he could go home safely at this time. Review of Systems 10-point ROS is otherwise unremarkable Physical Examination - Vital Signs Temperature: 97 F Blood Pressure: 108/63 Pulse: 78 Respirations: 18 Pulse Ox (%): 89 - Physical Exam General: Alert, In no apparent distress, Oriented x3 Respiratory: Diminished, Expiratory wheezes Cardiovascular: Regular rate/rhythm, Normal S1 S2, No murmurs Gastrointestinal: Normal bowel sounds, Soft and benign, Non-distended, No tenderness Musculoskeletal: No clubbing, No swelling, No tenderness Neurological: Sensation intact, Cranial nerves 3-12 intact - Studies Medications List Reviewed: Yes Assessment & Plan - Problems (Diagnosis) (1) Hypoxemia Current Visit: Yes Status: Acute (2) Pneumonia due to 2019 novel coronavirus Current Visit: Yes Status: Acute - Plan 1. Continue with IV antibiotics 2. Continue IV steroids 3. Repeat chest x-ray as his symptoms are not improving 4. O2 per protocol 5. Pulmonary consultation appreciated 6. Continue IV steroids and supplement with nutritional support as needed 7. Monitor inflammatory markers 8. GI and DVT prophylaxis Discharge Plan: Home Plan to discharge in: Greater than 2 days - Advance Directives Does patient have a Living Will: No Does patient have a Durable POA for Healthcare: No - Code Status/Comfort Care Code Status Assessed: Yes Code Status: Full Code Critical Care: No Time Spent Managing PTS Care (In Minutes): 35
--- NOTE | 2020-06-11 08:47 | P.PN ---
Subjective Date of Service: 06/10/20 Patient continues to look well clinically although he remains hypoxic. Arrange for home oxygen. Chest x-ray does show some worsening infiltrates on the left base. Review of Systems 10-point ROS is otherwise unremarkable Physical Examination - Vital Signs Temperature: 97 F Blood Pressure: 108/63 Pulse: 78 Respirations: 18 Pulse Ox (%): 89 - Physical Exam General: Alert, In no apparent distress, Oriented x3 Respiratory: Diminished, Expiratory wheezes Cardiovascular: Regular rate/rhythm, Normal S1 S2 Gastrointestinal: Normal bowel sounds, Soft and benign, Non-distended, No tenderness Musculoskeletal: No clubbing, No swelling Neurological: Normal gait, Normal strength at 5/5 x4 extr, Cranial nerves 3-12 intact - Studies Medications List Reviewed: Yes Assessment & Plan - Problems (Diagnosis) (1) Hypoxemia Current Visit: Yes Status: Acute (2) Pneumonia due to 2019 novel coronavirus Current Visit: Yes Status: Acute - Plan 1. Continue with antivirals 2. Continue IV steroids 3. Chest x-ray shows progressive infiltrates 4. O2 per protocol 5. Pulmonary consultation appreciated 6. Continue IV steroids and supplement with nutritional support as needed 7. Monitor inflammatory markers 8. GI and DVT prophylaxis Discharge Plan: Home Plan to discharge in: Greater than 2 days - Advance Directives Does patient have a Living Will: No Does patient have a Durable POA for Healthcare: No - Code Status/Comfort Care Code Status: Full Code Critical Care: No Time Spent Managing PTS Care (In Minutes): 35
[2020-06-11] MEDS: THIAMINE HCL 100 MG TABLET PO SCH (09:57)
[2020-06-11 11:05] LABS: Absolute Lymphocytes (CBC) 0.4 K/uL (0.7-4.9); Basophils % 0.1 % (0-1.3); Hematocrit 42.5 % (39.6-49.0); Lymphocytes % 2.4 % (15.3-44.8); MPV 7.9 fL (7.6-11.3)
[2020-06-11 11:26] LABS: BUN Blood Urea Nitrogen 27 mg/dL (7-18); Bicarbonate 24 mmol/L (21-32); Glucose Level 312 mg/dL (74-106); Magnesium 2.6 mg/dL (1.8-2.4); NT PRO-BNP 79 pg/mL (<125); Potassium 4.7 mmol/L (3.5-5.1); Sodium Level 134 mmol/L (136-145)
[2020-06-11 11:30] LABS: C-Reactive Protein < 2.90 mg/L (<3.00)
[2020-06-11 11:48] LABS: White Blood Cell Scan OK (OK)
[2020-06-11 11:49] LABS: Blood Morphology Comment NOT SEEN (NOT SEEN); Platelet Estimate INCR
[2020-06-11] MEDS: MELATONIN 5 MG TABLET PO SCH (20:07)
[2020-06-12] MEDS: METHYLPREDNISOLONE 125 MG INJ IV SCH ×2 (00:05→08:38)
[2020-06-12 06:59] LABS: ALT/SGPT 66 U/L (12-78); AST/SGOT 20 U/L (15-37); Albumin 2.5 g/dL (3.4-5.0); Alkaline Phosphatase 70 U/L (45-117); BUN Blood Urea Nitrogen 26 mg/dL (7-18); Bicarbonate 27 mmol/L (21-32); Bilirubin Total 0.7 mg/dL (0.2-1.0); Ferritin 1192.1 ng/mL (26-388); Glucose Level 212 mg/dL (74-106); Magnesium 2.8 mg/dL (1.8-2.4); NT PRO-BNP 81 pg/mL (<125); Phosphorus 4.1 mg/dL (2.5-4.9); Potassium 4.6 mmol/L (3.5-5.1); Sodium Level 136 mmol/L (136-145)
[2020-06-12 07:01] LABS: Absolute Lymphocytes (CBC) 0.6 K/uL (0.7-4.9); Basophils % 0.4 % (0-1.3); Hematocrit 41.6 % (39.6-49.0); Lymphocytes % 4.5 % (15.3-44.8); RBC Red Blood Cell Count 4.98 M/uL (4.33-5.43)
[2020-06-12 07:03] LABS: C-Reactive Protein < 2.90 mg/L (<3.00)
--- NOTE | 2020-06-12 08:20 | P.PN ---
Subjective Date of Service: 06/11/20 Patient continues to improve. Was 85% on room air. On 4 L he staying at 91- 92%. Continue with current plan of care as mentioned Review of Systems 10-point ROS is otherwise unremarkable Physical Examination - Vital Signs Temperature: 97.6 F Blood Pressure: 112/83 Pulse: 76 Respirations: 22 Pulse Ox (%): 94 - Physical Exam General: Alert, In no apparent distress, Oriented x3 Respiratory: Diminished, Crackles/rales, Expiratory wheezes Cardiovascular: Regular rate/rhythm, Normal S1 S2, No murmurs Gastrointestinal: Normal bowel sounds, Soft and benign, Non-distended, No tenderness Neurological: Normal strength at 5/5 x4 extr - Studies Medications List Reviewed: Yes Assessment & Plan - Problems (Diagnosis) (1) Hypoxemia Current Visit: Yes Status: Acute (2) Pneumonia due to 2019 novel coronavirus Current Visit: Yes Status: Acute - Plan Continue with plan of care as mentioned below 1. Continue with oral steroids 2. Awaiting for stabilization on oxygen at 4 L. Today he has done well. Anticipate discharge in the morning. 3. Pulmonary consultation appreciated 4. Monitor inflammatory markers 5. GI and DVT prophylaxis Discharge Plan: Home Plan to discharge in: Greater than 2 days - Advance Directives Does patient have a Living Will: No Does patient have a Durable POA for Healthcare: No - Code Status/Comfort Care Code Status: Full Code Critical Care: No Time Spent Managing PTS Care (In Minutes): 25
[2020-06-12] MEDS: VITAMIN D 1000 UNIT TAB PO SCH (08:37)
[2020-06-12] MEDS: APIXABAN 5 MG TABLET PO SCH (08:37)
[2020-06-12] MEDS: ASCORBIC ACID 500 MG TABLET PO SCH ×2 (08:37→13:25)
[2020-06-12] MEDS: FOLIC ACID 1 MG TABLET PO SCH (08:37)
[2020-06-12] MEDS: THIAMINE HCL 100 MG TABLET PO SCH (08:37)
[2020-06-12] MEDS: INSULIN -REGULAR HUMAN 50 UNIT/0.5 ML ML SQ SCH ×2 (08:38→13:25)
[2020-06-12] MEDS: SPIRONOLACTONE 25 MG TABLET PO SCH (08:38)
[2020-06-12 08:52] VITALS: O2SAT 89
[2020-06-12 12:11] VITALS: BP 118/71; TEMP 97.3
--- NOTE | 2020-06-17 01:33 | P.DS ---
Discharge Date: 06/12/20 Primary Care Provider: None Disposition: ROUTINE DISCHARGE Discharge Condition: GOOD Reason for Admission: Respiratory failure - Problems (1) Hypoxemia Status: Acute (2) Pneumonia due to 2019 novel coronavirus Status: Acute Brief History of Present Illness: Patient is a 50-year-old male without medical problems came to the emergency room with worsening shortness of breath, cough. Patient has been monitoring his oxygen saturations at home due to shortness of breath. He was also having some cough and congestion over the past week. His mother has oxygen. He noted that his oxygen level was around 90% on Tuesday. He start to use his mother's oxygen due to his room-air saturations. His oxygen r equirement was up to 4 L today. His symptoms have worsened and not improved. Increased fatigue. Poor appetite noted. He came to the ER for further evaluation. In the ER patient was evaluated. CT scan revealed no pulmonary embolism. Moderate to marked bilateral grass ground opacities noted in the lung. His CRP was elevated at 81. Ferritin also elevated at 1270. D-dimer 879. Lactic acid normal. Pro calcitonin 0.08. White count 7.9, hemoglobin 14. CBC unremarkable. Patient was given IV Solu-Medrol in the emergency room. Patient also given Rocephin. Patient admitted for further evaluation and treatment. When I saw the patient ER, he appeared stable. Patient on high-flow oxygen. Hospital Course: Patient's oxygenation was weaned down to 4 litres. Tolerated it well. Patient is currently doing well with no complaints. At this time, patient is stable for discharge with outpatient follow up. Continue with home oxygen. Outpatient follow with pulmonary. Continue with steroids, inhaler therapy, and cough medication. Stable for discharge home. Vital Signs/Physical Exam: Temp Pulse Resp BP Pulse Ox 97.3 F 82 20 118/71 90 L 06/12/20 12:00 06/12/20 12:00 06/12/20 12:00 06/12/20 12:00 06/12/20 12:00 General: Alert, In no apparent distress, Oriented x3 Laboratory Data at Discharge: WBC 13.6 K/uL (4.3-10.9) H 06/12/20 06:25 Hgb 14.4 g/dL (13.6-17.9) 06/12/20 06:25 Hct 41.6 % (39.6-49.0) 06/12/20 06:25 Plt Count 458 K/uL (152-406) H 06/12/20 06:25 PT 13.3 SECONDS (9.5-12.5) H 06/03/20 08:15 INR 1.13 06/03/20 08:15 APTT 29.3 SECONDS (24.3-36.9) 06/03/20 08:15 Sodium 136 mmol/L (136-145) 06/12/20 06:25 Potassium 4.6 mmol/L (3.5-5.1) 06/12/20 06:25 BUN 26 mg/dL (7-18) H 06/12/20 06:25 Creatinine 0.94 mg/dL (0.55-1.3) 06/12/20 06:25 Glucose 212 mg/dL (74-106) H 06/12/20 06:25 Phosphorus 4.1 mg/dL (2.5-4.9) 06/12/20 06:25 Magnesium 2.8 mg/dL (1.8-2.4) H 06/12/20 06:25 Total Bilirubin 0.7 mg/dL (0.2-1.0) 06/12/20 06:25 AST 20 U/L (15-37) 06/12/20 06:25 ALT 66 U/L (12-78) 06/12/20 06:25 Alkaline Phosphatase 70 U/L (45-117) 06/12/20 06:25 Lipase 140 U/L (73-393) 06/03/20 08:15 Home Medications: Albuterol Inhaler [Ventolin Inhaler*] 2 puff IH Q6H PRN #1 hfa.aer.ad 06/12/20 Apixaban [Eliquis] 5 mg PO BID #20 tablet 06/12/20 Ascorbic Acid [Vitamin C*] 500 mg PO TID #90 tablet 06/12/20 Benzonatate [Tessalon Perle*] 100 mg PO Q6H PRN #60 cap 06/12/20 Cholecalciferol (Vitamin D3) [Vitamin D 1000 Iu Tab*] 2,000 unit PO DAILY #30 tab 06/12/20 Melatonin 10 mg PO BEDTIME #30 tablet 06/12/20 Spironolactone [Aldactone*] 25 mg PO DAILY #30 tab 06/12/20 Thiamine HCl [Vitamin B-1*] 200 mg PO DAILY #30 tablet 06/12/20 predniSONE [Deltasone] 20 mg PO DAILY #30 tab 06/12/20 New Medications: Spironolactone [Aldactone*] 25 mg PO DAILY #30 tab Apixaban [Eliquis] 5 mg PO BID #20 tablet Melatonin 10 mg PO BEDTIME #30 tablet predniSONE [Deltasone] 20 mg PO DAILY #30 tab Benzonatate [Tessalon Perle*] 100 mg PO Q6H PRN #60 cap PRN Reason: Cough Albuterol Inhaler [Ventolin Inhaler*] 2 puff IH Q6H PRN #1 hfa.aer.ad PRN Reason: Shortness Of Breath Thiamine HCl [Vitamin B-1*] 200 mg PO DAILY #30 tablet Ascorbic Acid [Vitamin C*] 500 mg PO TID #90 tablet Cholecalciferol (Vitamin D3) [Vitamin D 1000 Iu Tab*] 2,000 unit PO DAILY #30 tab Patient Discharge Instructions: OK TO DC IV AND DC HOME. FOLLOW-UP WITH PCP IN 1-2 WEEKS. CLL ME AT [phone] IF ANY QUESTIONS [facility]GEARDING HOSPITAL STAY. RETURN TO THE ER IF SYMPTOMS WORSENS. FOLLOW-UP WITH PULMONARY IN 2 WEEKS. 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
--- NOTE | 2020-07-16 08:17 | P.PN ---
Subjective Date of Service: 06/06/19 Primary Care Provider: None Chief Complaint: Respiratory failure Patient admitted with burch virus seems to be improving continue to titrate his oxygen level down Review of Systems General: Weakness Respiratory: Shortness of Breath Physical Examination - Vital Signs Temperature: 97.3 F Blood Pressure: 118/71 Pulse: 82 Respirations: 20 Pulse Ox (%): 90 - Physical Exam General: Alert, Cooperative Respiratory: Clear to auscultation bilaterally, Diminished, Friction rub Cardiovascular: Regular rate/rhythm - Studies Medications List Reviewed: Yes Assessment & Plan - Problems (Diagnosis) (1) Pneumonia due to 2019 novel coronavirus Status: Acute Plan: Patient is clinically improving oxygen requirements are declining continue titrating his O2 down white count is minimally elevated ferritin levels are also elevated vital signs are stable still requiring FiO2 of 80% medication and labs reviewed
== END 2020-06-12 15:40 | disposition home or self-care (01) | DRG 177 ==
LOC: ER 07:43 → ERHOLD 11:23 → 3RD-ICU 13:30 → 4TH 06-06 11:19
PROVIDERS: ADMIT Family Medicine; ATTEND Hospitalist
DX: U07.1 COVID-19 (principal); J12.89 Other viral pneumonia; J96.01 Acute respiratory failure with hypoxia; Z23 Encounter for immunization; Z88.5 Allergy status to narcotic agent; Z88.8 Allergy status to other drugs, medicaments and biological substances
CPT/HCPCS: 36415; 71045; 71275; 80048; 80053; 80076; 81003; 81015; 82565; 82728; 82947; 83036; 83605; 83690; 83735; 83880; 84100; 84145; 84484; 85025; 85379; 85610; 85730; 86140; 87040; 87070; 87081; 87804; 90471; 93005; 94002; 94003; 94010; 94760; 96365; 96366; 96375; 99285; J0696; J2920; J2930; J7050; Q2035; Q9967; U0003